=== PATIENT | female | born 1935 | race Caucasian/White ===

== ENCOUNTER 2017-05-26 19:27 | Inpatient (IN) ==
--- NOTE | 2017-05-26 23:07 | Internal Med History&Physical ---
Date of Encounter: 05/27/17 Time of Encounter: 23:02 Assessment and Plan (1) Encephalopathy acute Current visit: Yes Status: Acute Likely hyponatremia. In the setting of slurred speech, should rule out CVA. Has received 1L NS prior to transfer to [facility]. Will continue patient on IV fluids at 75 ml/hr normal saline. Also MRI of head, carotid US. (2) Hyponatremia Current visit: Yes Status: Acute at bedside states that patient has been having poor appetite, likely cause. Start normal saline and titrate accordingly. No previous sodium levels available in records, will replace cautiously. (3) Elevated troponin Current visit: Yes Status: Acute mentioned that she was grabbing her chest prior to syncopal episode and altered behavior. She currently denies chest pain but there was elevation of troponin. Patient possibly with demand ischemia but will start on heparin drip until troponin is cycled to rule out ACS. (4) Hypokalemia Current visit: Yes Status: Acute Replace. (5) Heart murmur on physical examination Current visit: Yes Status: Acute (6) Hypertension Current visit: Yes Status: Acute Restart home medications. Qualifiers: Hypertension type: essential hypertension Qualified Code(s): I10 - Essential (primary) hypertension (7) GERD (gastroesophageal reflux disease) Current visit: Yes Status: Acute PPI Qualifiers: Esophagitis presence: esophagitis presence not specified Qualified Code(s) : K21.9 - Gastro-esophageal reflux disease without esophagitis (8) Hyperlipidemia Current visit: Yes Status: Acute Statin Qualifiers: Hyperlipidemia type: unspecified Qualified Code(s): E78.5 - Hyperlipidemia , unspecified (9) Alzheimer's dementia Current visit: Yes Status: Acute Hold Namenda Qualifiers: Alzheimer's disease onset: unspecified onset Dementia behavioral disturbance: without behavioral disturbance Qualified Code(s): G30.9 - Alzheimer's disease, unspecified; F02.80 - Dementia in other diseases classified elsewhere without behavioral disturbance; F02.80 - Dementia in other diseases classified elsewhere without behavioral disturbance; F02.80 - Dementia in other diseases classified elsewhere without behavioral disturbance Internal Medicine - H&P: HPI Chief complaint: Altered mental status History of present illness: Ms. Gaspar is a 81 year old female with history of Alzheimers dementia, HTN, hypothyroidism, GERD presented from home brought in to [facility] ED for AMS and collapse. Recently started Namenda 2 days ago. Earlier today she had incoherent speech for a few hours and then passed out. She did not have head injury. Witnessed by and son. No prior history of this. No history of stroke or CAD. Under increased stress for past week. Patient was noted by to rub her chest prior to symptoms onset. In [place] patient had sodium of 124, chloride of 88, creatinine within normal limits, lactic acid was within normal limits. Her troponin was 0.04 but then increased to 0.17. An EKG showed sinus tachycardia initially, but it was reported that at one point she briefly went into atrial fibrillation when she was there. A chest x- ray showed no acute process. A CT of head without contrast showed no acute intracranial process. She was give 1L bolus of normal saline followed by additional normal saline running prior to transfer. Past Med Surg Social Fam HX - Family History Mother Age at : 66 Hx Family Cardiac Disorders: Yes (HI) Hx Family Respiratory Disorders: No Hx Family Cancer: No Hx Family GI Disorders: No Hx Family Genitourinary Disorders: No Hx Family Endocrine Disorder: No Hx Family Musculoskeletal Disorders: No Hx Family Neuromuscular Disorders: No Hx Family Neurologic Disorders: No Hx Family HEENT Disorders: No Hx Family Autoimmune Disorders: No Hx Family Reproductive Disorders: No Hx Family Psychosocial Disorders: No Hx Family Medical Disorders: No Father Age at : 82 Hx Family Cardiac Disorders: Yes (CVA) Hx Family Respiratory Disorders: No Hx Family Cancer: No Hx Family GI Disorders: No Hx Family Genitourinary Disorders: No Hx Family Endocrine Disorder: Yes (DM) Hx Family Musculoskeletal Disorders: Yes (Toe amputation) Hx Family Neuromuscular Disorders: No Hx Family Neurologic Disorders: No Hx Family HEENT Disorders: No Hx Family Autoimmune Disorders: No Hx Family Reproductive Disorders: No Hx Family Psychosocial Disorders: No Hx Family Medical Disorders: No Internal Medicine - H&P: Meds 3 Allergy/AdvReac Type Severity Reaction Status Date / Time Sulfa (Sulfonamide Allergy Rash Verified 05/26/17 23:12 Antibiotics) All Systems PM: A 10-system review of systems was performed and is negative for pertinent findings except as documented above in the HPI. - Constitutional Constitutional: falls, weakness, no anorexia, no chills, no fatigue, no fever(s) , no lethargy, no night sweats - EENT Eyes: no change in vision, no discharge, no pain, no photophobia Ears: no ear discharge, no ear pain, no tinnitus Nose, mouth and throat: no dysphagia, no nasal discharge, no neck pain, no sore throat - Cardiovascular Cardiovascular ROS IM: no chest pain, no diaphoresis, no dyspnea, no lightheadedness, no palpitations, no syncope - Respiratory Respiratory: no cough, no dyspnea, no wheezing, no excessive phlegm production - Gastrointestinal Gastrointestinal: no abdominal pain, no diarrhea, no hematemesis, no hematochezia, no melena, no nausea, no vomiting - Genitourinary Genitourinary: no change in urinary stream, no dysuria, no flank pain, no hematuria - Musculoskeletal Musculoskeletal ROS IM: no numbness, no tingling - Neurological Neurological ROS: abnormal speech, behavioral changes, confusion, no abnormal gait, no abnormal movements, no convulsions, no focal weakness, no headache(s), no loss of vision, no numbness - Constitutional Vitals: Temp Pulse Resp BP Pulse Ox 97.8 F 72 16 145/71 95 05/26/17 22:27 05/26/17 22:27 05/26/17 22:27 05/26/17 22:27 05/26/17 22:27 General appearance: Present: A&O X 1, no acute distress - Head Head exam: Present: atraumatic, normocephalic - Cardiovascular Cardiovascular exam: Present: RRR, systolic murmur - Neurological Exam Neurological exam: Present: alert, CN II-XII intact, reflexes normal, no focal deficits, strengths equal and symetr throughout. Absent: facial droop, speech deficit Internal Med - H&P Results - Labs CBC & Chem 7: 05/27/17 00:04 05/27/17 00:04
[2017-05-27 00:12] LABS: Basophils % 0.3 %; Eosinophils % 0.2 %; Hematocrit 36.1 % (35.3-44.9); Hemoglobin 12.9 g/dL (11.5-15.4); Immature Granulocytes % 0.5 % (0-4); Lymphocytes # 0.9 K/mcL (0.6-4.6); Mean Corpuscular HGB Conc 35.7 g/dL (31.6-35.5); Mean Corpuscular Hemoglobin 31.1 pg (28.0-33.3); Mean Platelet Volume 9.5 fL (9.4-12.4); Monocytes # 0.8 K/mcL (0.0-1.3); Platelet Count 230 K/mcL (140-400); Red Blood Count 4.15 M/mcL (3.82-4.97)
[2017-05-27 00:17] LABS: Prothrombin Time 10.4 Seconds (9.4-12.1)
[2017-05-27 00:25] LABS: BUN/Creatinine Ratio 14 (6-26); Blood Urea Nitrogen 9 mg/dL (8-23); Calcium 8.7 mg/dL (8.6-10.3); Carbon Dioxide 19 mEq/L (23-29); Chloride 95 mEq/L (98-107); Glucose 126 mg/dL (70-105); Osmolality,Calculated 254 (280-300); Potassium 3.2 mEq/L (3.5-5.1); Sodium 122 mEq/L (136-145); eGFR For African Americans > 60 (> 60); eGFR For Non-African Americans > 60 (> 60)
[2017-05-27] MEDS ORDERED: Naloxone 0.4 MG/ML INJ IVP PRN (00:28)
[2017-05-27] MEDS ORDERED: Ondansetron 4 MG/2 ML VIAL IVP PRN (00:28)
[2017-05-27] MEDS ORDERED: Acetaminophen 325 MG TABLET PO PRN (00:28)
[2017-05-27] MEDS: 0.9 % Sodium Chloride 1,000 ML IVC SCH ×2 (02:03→17:42)
[2017-05-27 02:04] LABS: Basophils % 0.5 %; Eosinophils % 0.4 %; Hematocrit 33.7 % (35.3-44.9); Immature Granulocytes % 0.4 % (0-4); Immature Platelets 2.8 % (1.1-6.1); Lymphocytes # 0.8 K/mcL (0.6-4.6); Lymphocytes % 10.1 %; Mean Corpuscular HGB Conc 35.6 g/dL (31.6-35.5); Mean Corpuscular Hemoglobin 30.9 pg (28.0-33.3); Mean Corpuscular Volume 86.9 fL (83.0-100.0); Mean Platelet Volume 9.4 fL (9.4-12.4); Monocytes # 0.8 K/mcL (0.0-1.3); Monocytes % 10.1 %; Neutrophils # 6.1 K/mcL (1.6-8.9); Platelet Count 232 K/mcL (140-400); Red Blood Count 3.88 M/mcL (3.82-4.97); Red Cell Distribution Width 12.1 % (11.5-14.5); Segmented Neutrophils % 78.5 %
[2017-05-27] MEDS: Heparin 25,000 UNIT/500 ML D5W 25,000 UNIT/500 ML BAG IVC SCH (02:04)
[2017-05-27 02:25] LABS: BUN/Creatinine Ratio 15 (6-26); Blood Urea Nitrogen 10 mg/dL (8-23); Calcium 8.6 mg/dL (8.6-10.3); Carbon Dioxide 20 mEq/L (23-29); Chloride 96 mEq/L (98-107); Glucose 160 mg/dL (70-105); Osmolality,Calculated 258 (280-300); Potassium 3.1 mEq/L (3.5-5.1); Sodium 123 mEq/L (136-145); eGFR For African Americans > 60 (> 60); eGFR For Non-African Americans > 60 (> 60)
[2017-05-27] MEDS ORDERED: *HR* Heparin 5,000 UNIT/ML VIAL SQ SCH (06:00)
[2017-05-27] MEDS: Levothyroxine 25 MCG TABLET PO SCH (06:33)
--- NOTE | 2017-05-27 16:28 | Internal Med Progress Note ---
Date of Encounter: 05/27/17 Time of Encounter: 12:00 - Assessment and plan (1) Encephalopathy acute Current Visit: Yes Status: Acute Assessment and plan: Patient with baseline dementia. She just started Namenda 2 days prior to event. Patient was at home with was not feeling well, patient was standing in front of a chair and family reports that she "passed out". They also report that she did not hit her head, she fell into the chair on her bottom , and her eyes were open. They report that she was not responsive for several hours afterwards, she has repeat return to baseline today. She was found to be hyponatremic on arrival, could be contributory to confusion. Also could be related to TIA. Patient is alert and awake now, appears to answer questions appropriately. She states that she has no recollection of yesterday, but she does deny chest pain. Bilateral carotids with nonstenotic plaque. PFO present on echo. EF is 60% with indiscriminate diastolic function mild MR, mild TR. Head CT is negative as well as brain MRI. Continue telemetry Continue to monitor labs. Stop Namenda Echocardiogram 05/27/17 00:35 Impressions: LVEF 60%. Indeterminate diastolic function. Normal right ventricular structure and function. Mild mitral regurgitation. Mild tricuspid regurgitation. No pulmonary hypertension. There is a PFO by agitated saline contrast, Brain MRI 05/27/17 00:40 IMPRESSION: Multifocal small-vessel ischemic changes bilaterally without acute infarct D/ / Pawel Bright / Pawel Bright Interpreting Provider: Pawel Bright (2) Hyponatremia Current Visit: Yes Status: Acute Assessment and plan: Sodium is improving, continue IV fluid and monitor labs. (3) Hypokalemia Current Visit: Yes Status: Acute Assessment and plan: By mouth supplementation. (4) Hypertension Current Visit: Yes Status: Chronic Assessment and plan: Blood pressure is well controlled. Continue current medication regimen and vital signs per orders. Qualifiers: Hypertension type: essential hypertension Qualified Code(s): I10 - Essential (primary) hypertension (5) GERD (gastroesophageal reflux disease) Current Visit: Yes Status: Chronic Assessment and plan: Continue home medications. Qualifiers: Esophagitis presence: esophagitis presence not specified Qualified Code(s) : K21.9 - Gastro-esophageal reflux disease without esophagitis (6) Hyperlipidemia Current Visit: Yes Status: Acute Assessment and plan: Continue Zocor. Qualifiers: Hyperlipidemia type: unspecified Qualified Code(s): E78.5 - Hyperlipidemia , unspecified (7) Alzheimer's dementia Current Visit: Yes Status: Acute Assessment and plan: Patient takes Aricept at home, she had just started Namenda 2 days prior to event. Family reports in the past the patient had difficulty with Namenda after 2 weeks. Patient's altered mental status prior to arrival could be reaction to Namenda. It has been stopped and we will not recommend restarting it. Patient is close to the nurse's station. Fall precautions Bed alarm Qualifiers: Alzheimer's disease onset: unspecified onset Dementia behavioral disturbance: without behavioral disturbance Qualified Code(s): G30.9 - Alzheimer's disease, unspecified; F02.80 - Dementia in other diseases classified elsewhere without behavioral disturbance; F02.80 - Dementia in other diseases classified elsewhere without behavioral disturbance; F02.80 - Dementia in other diseases classified elsewhere without behavioral disturbance (8) Elevated troponin Current Visit: Yes Status: Acute Assessment and plan: Patient with elevated troponin 0.27, 0.19, 0.29. Cardiology has been consulted. It is unclear if patient had chest pain. Lactic acid is within normal limits, patient does not have a white count. Echo with preserved EF, indeterminant diastolic function, there is a PFO, mild TR, mild MR. Renal function is within normal limits. Continue telemetry Patient is on a heparin drip, nursing to monitor and titrate. (9) DVT prophylaxis Current Visit: Yes Status: Acute Assessment and plan: Patient is on a heparin drip currently for elevated troponin. - Time Spent With Patient less than 15 minutes - Constitutional Vitals: Temp Pulse Resp BP Pulse Ox 98.4 F 71 17 109/61 96 05/27/17 16:17 05/27/17 16:17 05/27/17 16:17 05/27/17 16:17 05/27/17 16:17 General appearance: Present: A&O X 1, pleasant, no acute distress, answers questions appropriately - Head Head exam: Present: atraumatic, normal inspection, normocephalic - Eye Eye exam: Present: normal appearance, conjuntiva pink, sclera anicteric - Neck Neck exam general surgery: Present: supple, trachea midline. Absent: lymphadenopathy, tenderness - Respiratory Respiratory exam: Present: CTAB. Absent: accessory muscle use, chest wall tenderness, rales, rhonchi, wheezes - Cardiovascular Cardiovascular exam: Present: RRR, +S1, +S2. Absent: diastolic murmur, gallop, rubs, systolic murmur - GI/Abdominal GI/Abdominal exam: Present: normal bowel sounds, soft, no peritoneal signs. Absent: distended, hepatomegaly, tenderness - Extremities Exam Extremities exam: Present: normal capillary refill, warm, radial pulses palpable and symmetrical. Absent: calf tenderness, cyanotic, pedal edema, tenderness - Neurological Exam Neurological exam: Present: CN II-XII intact, oriented X3, no focal deficits. Absent: facial droop, speech deficit - Skin Skin exam: Present: dry, intact, normal color, warm. Absent: rash Internal Medicine: Result - Labs CBC & Chem 7: 05/27/17 01:57 05/27/17 12:53 Labs: Short CBC 05/27/17 05/27/17 Range/Units 00:04 01:57 WBC 8.8 7.8 (4.3-11.1) K/mcL Hgb 12.9 12.0 (11.5-15.4) g/dL Hct 36.1 33.7 L (35.3-44.9) % Plt Count 230 232 (140-400) K/mcL Neutrophils # 7.0 6.1 (1.6-8.9) K/mcL BMP 05/27/17 05/27/17 05/27/17 00:04 01:57 12:53 Sodium 122 L 123 L 125 L Potassium 3.2 L 3.1 L Chloride 95 L 96 L Carbon Dioxide 19 L 20 L BUN 9 10 Creatinine 0.63 0.68 Glucose 126 H 160 H Calcium 8.7 8.6 Cardiac Enzymes 05/27/17 05/27/17 05/27/17 Range/Units 00:04 06:19 12:53 Troponin I 0.27 H* 0.19 H* 0.29 H* (< 0.04) ng/mL - ABG Interpretation ABG results: PT/INR, D-dimer PT 10.4 Seconds (9.4-12.1) 05/27/17 00:04 - Impressions Impressions Echocardiogram 05/27/17 00:35 Impressions: LVEF 60%. Indeterminate diastolic function. Normal right ventricular structure and function. Mild mitral regurgitation. Mild tricuspid regurgitation. No pulmonary hypertension. There is a PFO by agitated saline contrast, Left Ventricular Wall Motion: Rest Echo Findings All wall segments showed normal motion. Findings: Study Quality * Technically adequate exam. ECG Findings * Normal sinus rhythm. Left Ventricle * LVEF 60%. * Normal LV chamber size, wall thickness and function. * Indeterminate diastolic function. Right Ventricle * Normal right ventricular structure and function. Left Atrium * Normal left atrial size. Right Atrium * Normal right atrial size. Aortic Valve * No aortic regurgitation. * No aortic stenosis. * Trileaflet aortic valve. Mitral Valve * Normal mitral valve structure. * No mitral stenosis. * Mild mitral regurgitation. Tricuspid Valve * Tricuspid valve not well visualized. * Mild tricuspid regurgitation. * Estimated RA pressure is 3 mmHg. * Estimated RVSP is 31 mmHg. * No pulmonary hypertension. Pulmonic Valve * Pulmonic valve is not well visualized. * No pulmonic stenosis. * Trace pulmonic regurgitation. Pulmonary Artery * Pulmonary artery not well visualized. Aorta * Normally sized aortic root. Pericardium * There is no pericardial effusion present. Interatrial Septum * There is a PFO by agitated saline contrast, IVC * Normal IVC dimensions and inspiratory collapse. Brain MRI 05/27/17 00:40 IMPRESSION: Multifocal small-vessel ischemic changes bilaterally without acute infarct D/ / Pawel Bright / Pawel Bright Interpreting Provider: Pawel Bright Consult Discharge Plan - Plan Referrals: Lyla Bates, [employer] AND DR[employer] RESEARCH SCIENTIST [Primary Care Provider] -
[2017-05-27 17:38] LABS: Activated Partial Thrombo Time 123.9 Seconds (26.0-36.0)
[2017-05-27 17:47] LABS: Heparin anti-factor XA UFH 0.8 IU/mL (0.30-0.70)
[2017-05-27] MEDS: Niacin (24 HR) 500 MG TAB.ER.24H PO SCH (20:11)
[2017-05-28] MEDS: Levothyroxine 25 MCG TABLET PO SCH (09:37)
[2017-05-28] MEDS: Heparin 25,000 UNIT/500 ML D5W 25,000 UNIT/500 ML BAG IVC SCH (10:06)
--- NOTE | 2017-05-28 10:12 | Internal Med Progress Note ---
Date of Encounter: 05/28/17 Time of Encounter: 07:20 - Assessment and plan (1) Encephalopathy acute Current Visit: Yes Status: Acute Assessment and plan: Patient with baseline dementia. She just started Namenda 2 days prior to event. Patient was at home with was not feeling well, patient was standing in front of a chair and family reports that she "passed out". They also report that she did not hit her head, she fell into the chair on her bottom , and her eyes were open. They report that she was not responsive for several hours afterwards, she has repeat return to baseline today. She was found to be hyponatremic on arrival, could be contributory to confusion , possible seizure. Also could be related to TIA. Repeat labs pending. Patient is alert and awake now, appears to answer questions appropriately. She states that she has no recollection of yesterday, but she does deny chest pain. Bilateral carotids with nonstenotic plaque. PFO present on echo. EF is 60% with indiscriminate diastolic function mild MR, mild TR. Head CT is negative as well as brain MRI. Continue telemetry Continue to monitor labs. Stop Namenda (2) Hyponatremia Current Visit: Yes Status: Acute Assessment and plan: Sodium is improving, continue IV fluid and monitor labs. Repeat labs pending. (3) Hypokalemia Current Visit: Yes Status: Acute Assessment and plan: By mouth supplementation. Repeat labs pending. (4) Hypertension Current Visit: Yes Status: Chronic Assessment and plan: Blood pressure is well controlled. Continue current medication regimen and vital signs per orders. Qualifiers: Hypertension type: essential hypertension Qualified Code(s): I10 - Essential (primary) hypertension (5) GERD (gastroesophageal reflux disease) Current Visit: Yes Status: Chronic Assessment and plan: Continue home medications. Qualifiers: Esophagitis presence: esophagitis presence not specified Qualified Code(s) : K21.9 - Gastro-esophageal reflux disease without esophagitis (6) Hyperlipidemia Current Visit: Yes Status: Acute Assessment and plan: Chronic. Continue Zocor. Qualifiers: Hyperlipidemia type: unspecified Qualified Code(s): E78.5 - Hyperlipidemia , unspecified (7) Alzheimer's dementia Current Visit: Yes Status: Acute Assessment and plan: Patient takes Aricept at home, she had just started Namenda 2 days prior to event. Family reports in the past the patient had difficulty with Namenda after 2 weeks. Patient's altered mental status prior to arrival could be reaction to Namenda. It has been stopped and we will not recommend restarting it. Patient is close to the nurse's station. Fall precautions Bed alarm Qualifiers: Alzheimer's disease onset: unspecified onset Dementia behavioral disturbance: without behavioral disturbance Qualified Code(s): G30.9 - Alzheimer's disease, unspecified; F02.80 - Dementia in other diseases classified elsewhere without behavioral disturbance; F02.80 - Dementia in other diseases classified elsewhere without behavioral disturbance; F02.80 - Dementia in other diseases classified elsewhere without behavioral disturbance (8) Elevated troponin Current Visit: Yes Status: Acute Assessment and plan: Patient with elevated troponin 0.27, 0.19, 0.29. Cardiology has been consulted. It is unclear if patient had chest pain. Lactic acid is within normal limits, patient does not have a white count. Echo with preserved EF, indeterminant diastolic function, there is a PFO, mild TR, mild MR. Renal function is within normal limits. Continue telemetry Patient is on a heparin drip, nursing to monitor and titrate. Cardiology consultation pending. (9) DVT prophylaxis Current Visit: Yes Status: Acute Assessment and plan: Patient is on a heparin drip currently for elevated troponin. - Time Spent With Patient less than 15 minutes - Subjective Interval history: Pt was seen and assessed at 0720. She was alert and awake and states that she feels better. Pt still denies chest pain. at bedside, questions answered. Pt denies headache, n/v/d/, vision changes, abd pain or SOB. - Constitutional Vitals: Temp Pulse Resp BP Pulse Ox 98.3 F 73 16 122/87 93 05/28/17 09:46 05/28/17 09:46 05/28/17 09:46 05/28/17 09:46 05/28/17 09:46 General appearance: Present: cooperative, A&O X 1, pleasant, no acute distress, answers questions appropriately - Head Head exam: Present: atraumatic, normal inspection, normocephalic - Eye Eye exam: Present: normal appearance, conjuntiva pink, sclera anicteric - Neck Neck exam general surgery: Present: supple, trachea midline. Absent: lymphadenopathy - Respiratory Respiratory exam: Present: chest wall tenderness, CTAB. Absent: accessory muscle use, rales, respiratory distress, rhonchi, wheezes - Cardiovascular Cardiovascular exam: Present: RRR, +S1, +S2. Absent: diastolic murmur, gallop, rubs, systolic murmur - GI/Abdominal GI/Abdominal exam: Present: normal bowel sounds, soft, no peritoneal signs. Absent: distended, hepatomegaly, tenderness - Extremities Exam Extremities exam: Present: normal capillary refill, warm, radial pulses palpable and symmetrical. Absent: calf tenderness, cyanotic, pedal edema, tenderness - Neurological Exam Neurological exam: Present: alert, oriented X3, no focal deficits. Absent: facial droop, speech deficit - Skin Skin exam: Present: dry, intact, normal color, warm. Absent: rash Internal Medicine: Result - Labs CBC & Chem 7: 05/27/17 01:57 05/27/17 12:53 Labs: BMP 05/27/17 12:53 Sodium 125 L Cardiac Enzymes 05/27/17 Range/Units 12:53 Troponin I 0.29 H* (< 0.04) ng/mL - ABG Interpretation ABG results: PT/INR, D-dimer PT 10.4 Seconds (9.4-12.1) 05/27/17 00:04 - Impressions Impressions Echocardiogram 05/27/17 00:35 Impressions: LVEF 60%. Indeterminate diastolic function. Normal right ventricular structure and function. Mild mitral regurgitation. Mild tricuspid regurgitation. No pulmonary hypertension. There is a PFO by agitated saline contrast, Left Ventricular Wall Motion: Rest Echo Findings All wall segments showed normal motion. Findings: Study Quality * Technically adequate exam. ECG Findings * Normal sinus rhythm. Left Ventricle * LVEF 60%. * Normal LV chamber size, wall thickness and function. * Indeterminate diastolic function. Right Ventricle * Normal right ventricular structure and function. Left Atrium * Normal left atrial size. Right Atrium * Normal right atrial size. Aortic Valve * No aortic regurgitation. * No aortic stenosis. * Trileaflet aortic valve. Mitral Valve * Normal mitral valve structure. * No mitral stenosis. * Mild mitral regurgitation. Tricuspid Valve * Tricuspid valve not well visualized. * Mild tricuspid regurgitation. * Estimated RA pressure is 3 mmHg. * Estimated RVSP is 31 mmHg. * No pulmonary hypertension. Pulmonic Valve * Pulmonic valve is not well visualized. * No pulmonic stenosis. * Trace pulmonic regurgitation. Pulmonary Artery * Pulmonary artery not well visualized. Aorta * Normally sized aortic root. Pericardium * There is no pericardial effusion present. Interatrial Septum * There is a PFO by agitated saline contrast, IVC * Normal IVC dimensions and inspiratory collapse. Consult Discharge Plan - Plan Referrals: Lyla Bates, [employer] DEVELOPER [Primary Care Provider] -
[2017-05-28 10:33] LABS: Basophils % 0.7 %; Eosinophils % 0.9 %; Hematocrit 31.7 % (35.3-44.9); Hemoglobin 11.1 g/dL (11.5-15.4); Immature Granulocytes % 0.2 % (0-4); Lymphocytes % 22.7 %; Mean Corpuscular Hemoglobin 31.4 pg (28.0-33.3); Mean Corpuscular Volume 89.5 fL (83.0-100.0); Mean Platelet Volume 9.9 fL (9.4-12.4); Monocytes # 0.5 K/mcL (0.0-1.3); Monocytes % 11.1 %; Neutrophils # 2.8 K/mcL (1.6-8.9); Platelet Count 179 K/mcL (140-400); Red Blood Count 3.54 M/mcL (3.82-4.97); Red Cell Distribution Width 12.5 % (11.5-14.5); Segmented Neutrophils % 64.4 %
[2017-05-28 10:36] LABS: BUN/Creatinine Ratio 13 (6-26); Blood Urea Nitrogen 8 mg/dL (8-23); Calcium 8.3 mg/dL (8.6-10.3); Carbon Dioxide 25 mEq/L (23-29); Chloride 100 mEq/L (98-107); Glucose 107 mg/dL (70-105); Osmolality,Calculated 265 (280-300); Potassium 3.6 mEq/L (3.5-5.1); Sodium 128 mEq/L (136-145); eGFR For African Americans > 60 (> 60); eGFR For Non-African Americans > 60 (> 60)
[2017-05-28] MEDS: 0.9 % Sodium Chloride 1,000 ML IVC SCH (16:40)
[2017-05-28 20:44] LABS: Sodium, Urine 58.1 mEq/L
[2017-05-28] MEDS: Niacin (24 HR) 500 MG TAB.ER.24H PO SCH (20:45)
[2017-05-29 03:58] LABS: Basophils % 0.8 %; Eosinophils # 0.1 K/mcL (0.0-0.6); Eosinophils % 2.7 %; Hematocrit 30.9 % (35.3-44.9); Hemoglobin 10.8 g/dL (11.5-15.4); Immature Granulocytes % 0.4 % (0-4); Lymphocytes # 1.2 K/mcL (0.6-4.6); Lymphocytes % 25.6 %; Mean Corpuscular Hemoglobin 31.2 pg (28.0-33.3); Mean Corpuscular Volume 89.3 fL (83.0-100.0); Mean Platelet Volume 10.1 fL (9.4-12.4); Monocytes # 0.6 K/mcL (0.0-1.3); Monocytes % 12.9 %; Neutrophils # 2.7 K/mcL (1.6-8.9); Platelet Count 168 K/mcL (140-400); Red Blood Count 3.46 M/mcL (3.82-4.97); Red Cell Distribution Width 12.9 % (11.5-14.5); Segmented Neutrophils % 57.6 %
[2017-05-29 04:21] LABS: BUN/Creatinine Ratio 13 (6-26); Blood Urea Nitrogen 9 mg/dL (8-23); Calcium 8.4 mg/dL (8.6-10.3); Carbon Dioxide 22 mEq/L (23-29); Chloride 102 mEq/L (98-107); Glucose 101 mg/dL (70-105); Osmolality,Calculated 267 (280-300); Potassium 3.6 mEq/L (3.5-5.1); Sodium 129 mEq/L (136-145); eGFR For African Americans > 60 (> 60); eGFR For Non-African Americans > 60 (> 60)
[2017-05-29] MEDS: 0.9 % Sodium Chloride 1,000 ML IVC SCH (05:25)
[2017-05-29] MEDS: Levothyroxine 25 MCG TABLET PO SCH (05:56)
[2017-05-29] MEDS ORDERED: 0.9 % Sodium Chloride 1,000 ML IVC SCH (07:15)
--- NOTE | 2017-05-29 07:58 | Cardiology Consult Note ---
Addendum entered and electronically signed by Jimmie Coleman CNP 05/29/17 09:40 : Clarification: Patient and deny any CP during or prior to event. reports patient had just stood up to put on coat when she got weak and he lowered her to the ground. Outside records reviewed and now evidence of afib noted-- all ECGs strips shows SR-ST. Will DC IV Hep gtt. Will resume home dose asa. Original Note: Date of Encounter: 05/29/17 Time of Encounter: 08:00 Assessment and Plan (1) Elevated troponin Current Visit: Yes Status: Acute Per Cardiology: Flat, adynamic trops with peak 0.29 in setting of hyponatremia, reports SBP 160's initially, seizure like activity with LOC, and concerns for possible afib per medical records. Echo with LVEF 60%, Indeterminate diastolic function, Mild MR & TR. NSWMA. CP free. Will discuss and review with Dr. Guillory. Patient and evaluating monitoring and observing vs further ishemic eval during stay ( vs. [facility]). Will address CR rehab during course, demand ischemia vs NSTEMI. On ARB and Statin. On Hep gtt. (2) Alzheimer's dementia Current Visit: Yes Status: Chronic Per Cardiology: Has baseline dementia. Brain MRI no acute findings. Currently A&Ox3. Qualifiers: Alzheimer's disease onset: unspecified onset Dementia behavioral disturbance: without behavioral disturbance Qualified Code(s): G30.9 - Alzheimer's disease, unspecified; F02.80 - Dementia in other diseases classified elsewhere without behavioral disturbance; F02.80 - Dementia in other diseases classified elsewhere without behavioral disturbance; F02.80 - Dementia in other diseases classified elsewhere without behavioral disturbance Discussion w patient/family: The assessment and plan as outlined above was discussed with the patient and/or family members who expressed understanding and agreement. All questions were answered. Thank you for involving us in the care of your patient. Please call with any questions. History of Present Illness Consult date: 05/29/17 Requesting physician: Natalia Bailey Consult reason: Elevated Trop Chief complaint: Seizure, Confusion History of present illness: Previous records reviewed: "Ms. Gaspar is a 81 year old female with history of Alzheimers dementia, HTN, hypothyroidism, GERD presented from home brought in to [facility] ED for AMS and collapse. Recently started Namenda 2 days ago. Earlier today she had incoherent speech for a few hours and then passed out. She did not have head injury. Witnessed by and son. No prior history of this. No history of stroke or CAD. Under increased stress for past week. Patient was noted by to rub her chest prior to symptoms onset. In [place] patient had sodium of 124, chloride of 88, creatinine within normal limits, lactic acid was within normal limits. Her troponin was 0.04 but then increased to 0.17. An EKG showed sinus tachycardia initially, but it was reported that at one point she briefly went into atrial fibrillation when she was there. A chest x- ray showed no acute process. A CT of head without contrast showed no acute intracranial process". Cardiology C/s for trop elevation. Patient seen with at bedside. Today she is A&Ox3. They both deny any chest pain, shortness of breath, palpitations. Deny any hx of CAD or afib. reports seizure-like activity prior to admission that he attributes to low sodium. He confirms the above information. Past Med Surg Social Fam HX - Past Medical History Attestation: Yes The following information was validated with the patient. Source: old records reviewed, obtained from family Medical history: GERD, hypertension, thyroid disease, other (alzheimer's dementia) - Social History Smoking Status: Never smoker Smokeless Tobacco Status: No Alcohol use: none Drug use: none - Family History Mother Age at : 66 Hx Family Cardiac Disorders: Yes (NC) Hx Family Respiratory Disorders: No Hx Family Cancer: No Hx Family GI Disorders: No Hx Family Genitourinary Disorders: No Hx Family Endocrine Disorder: No Hx Family Musculoskeletal Disorders: No Hx Family Neuromuscular Disorders: No Hx Family Neurologic Disorders: No Hx Family HEENT Disorders: No Hx Family Autoimmune Disorders: No Hx Family Reproductive Disorders: No Hx Family Psychosocial Disorders: No Hx Family Medical Disorders: No Father Age at : 82 Hx Family Cardiac Disorders: Yes (CVA) Hx Family Respiratory Disorders: No Hx Family Cancer: No Hx Family GI Disorders: No Hx Family Genitourinary Disorders: No Hx Family Endocrine Disorder: Yes (DM) Hx Family Musculoskeletal Disorders: Yes (Toe amputation) Hx Family Neuromuscular Disorders: No Hx Family Neurologic Disorders: No Hx Family HEENT Disorders: No Hx Family Autoimmune Disorders: No Hx Family Reproductive Disorders: No Hx Family Psychosocial Disorders: No Hx Family Medical Disorders: No Medications and Allergies Cyanocobalamin (B-12) [Vitamin B12] 1,000 mcg IM QMONTH 05/27/17 [History] DiphenhydraMINE [Benadryl] 25 mg PO HS 05/27/17 [History] Donepezil [Aricept] 10 mg PO HS 05/27/17 [History] Levothyroxine [Synthroid] 25 mcg PO DAILY 05/27/17 [History] Losartan/Hydrochlorothiazide [Losartan-Hctz 100-25 mg Tab] 1 tab PO DAILY [History] Memantine [Namenda] 5 mg PO QAM 05/27/17 [History] Naproxen [Naprosyn] 500 mg PO BID 05/27/17 [History] Niacin [Plain Niacin] 500 mg PO DAILY 05/27/17 [History] Omeprazole [PriLOSEC] 20 mg PO DAILY 05/27/17 [History] Simvastatin [Zocor] 20 mg PO HS 05/27/17 [History] Tramadol HCl [Ultram] 50 mg PO QID PRN 05/27/17 [History] 3 Allergy/AdvReac Type Severity Reaction Status Date / Time Sulfa (Sulfonamide Allergy Rash Verified 05/26/17 23:12 Antibiotics) All Systems Review: A 10-system review of systems was performed and is negative for pertinent findings except as documented above in the HPI. - Cardiovascular Cardiovascular: as per HPI, chest pain at rest - Neurological Neurological: other (seizure) Physical Examination Vital Signs, Last 4 Hours Temp Pulse Resp BP Pulse Ox 05/29/17 07:03 98.4 F 71 14 123/76 97 General: Conversant, No Apparent Distress HEENT: Atraumatic, Normocephaly, Mucus Membranes Moist Neck: No JVD, Normal carotid pulses Cardiac: Reg Rate and Rhythm, Normal S1 and S2, No Murmur Lungs: Normal Breath Sounds, No Wheeze, Rales, Rhonchi Neuro: Alert and responsive, No focal deficits noted Abdomen: Soft, Non-Tender Skin: No rashes noted on visualized skin Musculoskeletal: No Chest Wall Tenderness Extremities: No Clubbing, No Cyanosis, No Edema, Normal Pulses Results 05/29/17 02:45 05/29/17 02:45 Lab Results Laboratory Tests 05/27/17 05/27/17 05/27/17 00:04 00:04 00:04 Hgb 12.9 Hct 36.1 INR 1.0 Troponin I 0.27 H* 05/27/17 05/27/17 05/28/17 06:19 12:53 10:10 Hgb Hct INR Troponin I 0.19 H* 0.29 H* 0.18 H* 05/29/17 02:45 Hgb 10.8 L Hct 30.9 L INR Troponin I ITS Impressions Echocardiogram 05/27/17 00:35 Impressions: LVEF 60%. Indeterminate diastolic function. Normal right ventricular structure and function. Mild mitral regurgitation. Mild tricuspid regurgitation. No pulmonary hypertension. There is a PFO by agitated saline contrast, Left Ventricular Wall Motion: Rest Echo Findings All wall segments showed normal motion. Findings: Study Quality * Technically adequate exam. ECG Findings * Normal sinus rhythm. Left Ventricle * LVEF 60%. * Normal LV chamber size, wall thickness and function. * Indeterminate diastolic function. Right Ventricle * Normal right ventricular structure and function. Left Atrium * Normal left atrial size. Right Atrium * Normal right atrial size. Aortic Valve * No aortic regurgitation. * No aortic stenosis. * Trileaflet aortic valve. Mitral Valve * Normal mitral valve structure. * No mitral stenosis. * Mild mitral regurgitation. Tricuspid Valve * Tricuspid valve not well visualized. * Mild tricuspid regurgitation. * Estimated RA pressure is 3 mmHg. * Estimated RVSP is 31 mmHg. * No pulmonary hypertension. Pulmonic Valve * Pulmonic valve is not well visualized. * No pulmonic stenosis. * Trace pulmonic regurgitation. Pulmonary Artery * Pulmonary artery not well visualized. Aorta * Normally sized aortic root. Pericardium * There is no pericardial effusion present. Interatrial Septum * There is a PFO by agitated saline contrast, IVC * Normal IVC dimensions and inspiratory collapse. Brain MRI 05/27/17 00:40 IMPRESSION: Multifocal small-vessel ischemic changes bilaterally without acute infarct D/ / Pawel Bright / Pawel Bright Interpreting Provider: Pawel Bright Active Medications Acetaminophen (Tylenol) 650 mg PO Q6HR PRN PRN Reason: Mild Pain (1-3) Stop: 11/26/17 00:29 Diphenhydramine HCl (Benadryl) 50 mg PO HS [facility] Stop: 11/27/17 21:01 Last Admin: 05/28/17 20:45 Dose: 50 mg Docusate Sodium (Colace) 100 mg PO BID PRN PRN Reason: Constipation Stop: 11/26/17 00:29 Donepezil HCl (Aricept) 10 mg PO HS [facility] Stop: 11/26/17 21:01 Last Admin: 05/28/17 20:45 Dose: 10 mg Heparin Sodium/Dextrose (Heparin 25,000 Unit/500 Ml D5w) 25,000 unit in 500 mls @ 19.33 mls/hr IVC .Q24H [facility]; 14 UNIT/KG/HR PRN Reason: Protocol Stop: 11/26/17 00:46 Last Titration: 05/28/17 10:07 Dose: 10.35 unit/kg/hr, 14.3 mls/hr Sodium Chloride (0.9 % Sodium Chloride) 1,000 mls @ 90 mls/hr IVC .Q11H7M [facility] Stop: 11/28/17 07:16 Levothyroxine Sodium (Synthroid) 25 mcg PO DAILY@0630 [facility] Stop: 11/26/17 06:31 Last Admin: 05/29/17 05:56 Dose: 25 mcg Losartan Potassium (Cozaar) 25 mg PO DAILY [facility] PRN Reason: Protocol Stop: 11/26/17 09:01 Last Admin: 05/28/17 09:47 Dose: 25 mg Naloxone HCl (Narcan) 0.4 mg IVP Q2MIN PRN PRN Reason: Opioid Reversal Stop: 11/26/17 00:29 Naproxen (Naprosyn) 500 mg PO BIDWM PRN; Protocol PRN Reason: Pain Stop: 11/26/17 01:04 Niacin (Niaspan) [address] [facility] Stop: 11/26/17 21:01 Last Admin: 05/28/17 20:45 Dose: 500 mg Omeprazole (Prilosec) 20 mg PO DAILY@0630 [facility] PRN Reason: Protocol Stop: 11/26/17 06:31 Last Admin: 05/29/17 05:56 Dose: 20 mg Ondansetron HCl (Zofran) 4 mg IVP Q8HR PRN PRN Reason: Nausea And Vomiting Stop: 06/24/18 00:29 Potassium Chloride (Potassium Chloride) 40 meq PO DAILY [facility] Stop: 11/26/17 12:46 Last Admin: 05/28/17 09:48 Dose: 40 meq Simvastatin (Zocor) 20 mg PO HS [facility] PRN Reason: Protocol Stop: 11/26/17 21:01 Last Admin: 05/28/17 20:45 Dose: 20 mg - Imaging and Cardiology Echo: report reviewed - EKG Interpretation EKG results cardiology: personally reviewed, normal ECG, sinus rhythm, no diagnostic ischemia, other (Tele reviewed and shows avg HR 69, SR, no afib noted ) Consult Discharge Plan - Plan Referrals: Lyla Bates, DIST[employer]BUTION SALES REPRESENTATIVE [Primary Care Provider] -
[2017-05-29] MEDS: Heparin 25,000 UNIT/500 ML D5W 25,000 UNIT/500 ML BAG IVC SCH (08:21)
[2017-05-29] MEDS: Aspirin 81 MG TAB.CHEW PO SCH (10:53)
--- NOTE | 2017-05-29 11:17 | Discharge Summary ---
Date of Encounter: 05/29/17 Time of Encounter: 07:50 - Discharge Diagnosis (1) Encephalopathy acute Priority: Primary Status: Acute Comments: Patient with baseline dementia. She just started Namenda 2 days prior to event. Patient was at home with was not feeling well, patient was standing in front of a chair and family reports that she "passed out". They also report that she did not hit her head, she fell into the chair on her bottom , and her eyes were open. They report that she was not responsive for several hours afterwards, she has repeat return to baseline today. She was found to be hyponatremic on arrival, could be contributory to confusion , possible seizure. Patient is alert and awake now, appears to answer questions appropriately. Bilateral carotids with nonstenotic plaque. PFO present on echo. EF is 60% with indiscriminate diastolic function mild MR, mild TR. Head CT is negative as well as brain MRI. Continue telemetry Continue to monitor labs. Stop Namenda (2) Hyponatremia Priority: Secondary Status: Acute Comments: Unknown cause at this time. Height chlorothiazide has been stopped, patient is not on any SSRIs. She and both deny excessive free water intake at home. Sodium is improving with IV hydration. We will redraw labs again today and monitor sodium. (3) Hypokalemia Priority: Secondary Status: Resolved Comments: Resolved with by mouth supplementation. (4) Hypertension Priority: Secondary Status: Chronic Comments: Blood pressure is within normal limits. Hydrochlorothiazide has been stopped due to hyponatremia. Blood pressure is still within normal limits Continue to monitor. Qualifiers: Hypertension type: essential hypertension Qualified Code(s): I10 - Essential (primary) hypertension (5) GERD (gastroesophageal reflux disease) Priority: Secondary Status: Chronic Comments: Chronic. Continue home medications. Qualifiers: Esophagitis presence: esophagitis presence not specified Qualified Code(s) : K21.9 - Gastro-esophageal reflux disease without esophagitis (6) Hyperlipidemia Priority: Secondary Status: Chronic Comments: Chronic. Continue simvastatin. Qualifiers: Hyperlipidemia type: unspecified Qualified Code(s): E78.5 - Hyperlipidemia , unspecified (7) Alzheimer's dementia Priority: Secondary Status: Chronic Comments: Patient takes Aricept at home, she had just started Namenda 2 days prior to event. Family reports in the past the patient had difficulty with Namenda after 2 weeks. Patient's altered mental status prior to arrival could be reaction to Namenda. It has been stopped and we will not recommend restarting it. Patient is close to the nurse's station. Fall precautions Bed alarm Qualifiers: Alzheimer's disease onset: unspecified onset Dementia behavioral disturbance: without behavioral disturbance Qualified Code(s): G30.9 - Alzheimer's disease, unspecified; F02.80 - Dementia in other diseases classified elsewhere without behavioral disturbance; F02.80 - Dementia in other diseases classified elsewhere without behavioral disturbance; F02.80 - Dementia in other diseases classified elsewhere without behavioral disturbance (8) Elevated troponin Priority: Secondary Status: Acute Comments: NSTEMI. Patient with elevated troponin 0.27, 0.19, 0.29. Cardiology has been consulted. It is unclear if patient had chest pain. Lactic acid is within normal limits, patient does not have a white count. Echo with preserved EF, indeterminant diastolic function, there is a PFO, mild TR, mild MR. Renal function is within normal limits. Continue telemetry Heparin drip has been discontinued. Cardiology consulted, recommend stress test tomorrow. Patient will be nothing by mouth after midnight. I appreciate the consultation and recommendations of cardiology. (9) DVT prophylaxis Priority: Secondary Status: Acute - Discharge Medications Home Medications: Cyanocobalamin (B-12) [Vitamin B12] 1,000 mcg IM QMONTH 05/27/17 [History] DiphenhydraMINE [Benadryl] 25 mg PO HS 05/27/17 [History] Donepezil [Aricept] 10 mg PO HS 05/27/17 [History] Levothyroxine [Synthroid] 25 mcg PO DAILY 05/27/17 [History] Losartan/Hydrochlorothiazide [Losartan-Hctz 100-25 mg Tab] 1 tab PO DAILY [History] Naproxen [Naprosyn] 500 mg PO BID 05/27/17 [History] Niacin [Plain Niacin] 500 mg PO DAILY 05/27/17 [History] Omeprazole [PriLOSEC] 20 mg PO DAILY 05/27/17 [History] Simvastatin [Zocor] 20 mg PO HS 05/27/17 [History] Tramadol HCl [Ultram] 50 mg PO QID PRN 05/27/17 [History] Allergies/Adverse Reactions: 3 Allergy/AdvReac Type Severity Reaction Status Date / Time Sulfa (Sulfonamide Allergy Rash Verified 05/26/17 23:12 Antibiotics) Procedures/tests Complete & Pending: Procedures Performed prior 72 hours Category Date Time Status MR head/brain wo con [MR] Routine MRI 05/27/17 00:40 Completed EKG [ECG 12 lead ECG] [ECG] Stat Y 05/26/17 23:42 Ordered EKG [ECG 12 lead ECG] [ECG] Stat Y 05/28/17 10:25 Ordered EV carotid duplex imaging BI Routine Y 05/27/17 00:40 Completed EV echocardiogram Routine Y 05/27/17 00:35 Completed Date of admission: 05/27/17 00:29 Primary care physician: Lyla Bates CNP Consults: 05/27/17 00:35 Consult to Occupational Therapy [CONS] Routine Comment: Evaluate, develop and implement POC Reason for Consult: Evaluate, develop and implement POC Consult to Physical Therapy [CONS] Routine Comment: Evaluate, develop and implement POC Reason for Consult: Disposition planning. Therapy - weakness in bed. 05/27/17 13:56 Consult to Cardiology [CONS] Routine Comment: Consulting Provider: Cardiology Lilia Reason for Consult: Elevated troponin, unsure if chest pain pt has Alzheimer' s. Time Notified: 13:57 Call Completed: Yes Discharging clinician: Natalia Bailey Anticipated date of discharge: 05/29/17 - Patient Status Disposition: Home, Self-Care Condition: Good Functional capacity at discharge: uses cane/walker Overall status at discharge: patient is back to baseline - Discharge Instructions Follow Up With: Lyla Bates CNP [Primary Care Provider] - Additional Instructions: Please follow up with her primary care provider for continued evaluation and repeat labs. Please try to see her within the next week. Resume her normal home medications, recommend holding Namenda at this time until patient is evaluated by primary care. Resume normal activities as tolerated. Resume normal diet as tolerated. Return to the emergency department as needed for any other problems or concerns , or should symptoms return or worsen. - Diet and Activity Activity: increase activity as tolerated, resume usual activities as tolerated Diet: advance to your usual diet Hospital course: Ms. Gaspar is a 81 year old female with PMH of dementia, hypertension, GERD, hyperlipidemia presents to the emergency department with hyponatremia, questionable seizure/encephalopathy. Patient started taking Namenda 2 days prior to event. Patient reports increased confusion and agitation with Namenda previously. Currently have recommended the patient stop taking Namenda and follow up with primary care, or whomever prescribed it. Hyponatremia has corrected with IV fluid. She is going to go back home with her family. She will need to follow up with primary care in the next few days for recheck and repeat labs. Patient with baseline dementia, answers questions appropriately however. She is pleasant. Vital signs and labs are stable and within normal limits. Imaging was negative. Cardiology has seen patient. She has elevated troponin, NSTEMI. Possible stress test in the morning. - Time Spent with Patient Total time spent providing and/or coordinating discharge services: Less than 30 minutes - Constitutional Vitals: Temp Pulse Resp BP Pulse Ox 99.3 F 73 15 120/73 93 05/29/17 10:35 05/29/17 10:35 05/29/17 10:35 05/29/17 10:35 05/29/17 10:35 General appearance: Present: cooperative, A&O X 3, pleasant, no acute distress, answers questions appropriately - Head Head exam: Present: atraumatic, normal inspection, normocephalic - Eye Eye exam: Present: normal appearance, conjuntiva pink, sclera anicteric - Neck Neck exam general surgery: Present: normal inspection, supple, trachea midline - Respiratory Respiratory exam: Present: CTAB. Absent: accessory muscle use, chest wall tenderness, decreased breath sounds, rales, rhonchi, wheezes - Cardiovascular Cardiovascular exam: Present: RRR, +S1, +S2. Absent: diastolic murmur, gallop, rubs, systolic murmur - GI/Abdominal GI/Abdominal exam: Present: normal bowel sounds, soft, no peritoneal signs. Absent: distended, hepatomegaly, tenderness - Extremities Exam Extremities exam: Present: warm, radial pulses palpable and symmetrical. Absent : calf tenderness, cyanotic, pedal edema - Neurological Exam Neurological exam: Present: alert, oriented X3, no focal deficits. Absent: facial droop, speech deficit - Skin Skin exam: Present: dry, intact, normal color, warm. Absent: rash
[2017-05-29] MEDS: Niacin (24 HR) 500 MG TAB.ER.24H PO SCH (21:54)
[2017-05-30 04:57] LABS: Basophils % 0.7 %; Eosinophils # 0.2 K/mcL (0.0-0.6); Hematocrit 33.1 % (35.3-44.9); Hemoglobin 11.3 g/dL (11.5-15.4); Immature Granulocytes % 0.5 % (0-4); Lymphocytes # 1.5 K/mcL (0.6-4.6); Lymphocytes % 25.6 %; Mean Corpuscular HGB Conc 34.1 g/dL (31.6-35.5); Mean Corpuscular Hemoglobin 30.7 pg (28.0-33.3); Mean Corpuscular Volume 89.9 fL (83.0-100.0); Mean Platelet Volume 10.1 fL (9.4-12.4); Monocytes # 0.7 K/mcL (0.0-1.3); Neutrophils # 3.3 K/mcL (1.6-8.9); Platelet Count 179 K/mcL (140-400); Red Blood Count 3.68 M/mcL (3.82-4.97); Red Cell Distribution Width 13.1 % (11.5-14.5); Segmented Neutrophils % 57.2 %
[2017-05-30 05:15] LABS: BUN/Creatinine Ratio 15 (6-26); Blood Urea Nitrogen 11 mg/dL (8-23); Calcium 8.8 mg/dL (8.6-10.3); Carbon Dioxide 24 mEq/L (23-29); Chloride 104 mEq/L (98-107); Glucose 92 mg/dL (70-105); Osmolality,Calculated 273 (280-300); Potassium 4.3 mEq/L (3.5-5.1); Sodium 132 mEq/L (136-145); eGFR For African Americans > 60 (> 60); eGFR For Non-African Americans > 60 (> 60)
[2017-05-30] MEDS: Levothyroxine 25 MCG TABLET PO SCH (06:05)
[2017-05-30] MEDS: Aspirin 81 MG TAB.CHEW PO SCH (07:26)
[2017-05-30 08:31] LABS: Magnesium 1.8 mg/dL (1.6-2.6)
--- NOTE | 2017-05-30 09:14 | Cardiology Progress Note ---
Date of Encounter: 05/30/17 Time of Encounter: 08:45 Assessment and Plan (1) Elevated troponin Current Visit: Yes Status: Acute Per Cardiology: Flat, adynamic trops with peak 0.29 in setting of hyponatremia, reports SBP 160's initially, seizure like activity with LOC, and concerns for possible afib per medical records-- again previous medical records reviewed with no A. fib appreciated and no A. fib appreciated during this hospital stay. Echo with LVEF 60%, Indeterminate diastolic function, Mild MR & TR. NSWMA. CP free. Patient and daughter are agreeable to nonexercise nuclear stress test. On ARB and Statin. (2) Alzheimer's dementia Current Visit: Yes Status: Chronic Per Cardiology: Has baseline dementia. Brain MRI no acute findings. Currently A&Ox3. Qualifiers: Alzheimer's disease onset: unspecified onset Dementia behavioral disturbance: without behavioral disturbance Qualified Code(s): G30.9 - Alzheimer's disease, unspecified; F02.80 - Dementia in other diseases classified elsewhere without behavioral disturbance; F02.80 - Dementia in other diseases classified elsewhere without behavioral disturbance; F02.80 - Dementia in other diseases classified elsewhere without behavioral disturbance Discussion w patient/family: The assessment and plan as outlined above was discussed with the patient and/or family members who expressed understanding and agreement. All questions were answered. Thank you for involving us in the care of your patient. Please call with any questions. Subjective Principal diagnosis: Elevated Trop Interval history: Patient seen with daughter at bedside. She denies any chest pain, short of breath, palpitations. Denies any new concerns or complaints. Objective Vital Signs, Last 4 Hours Temp Pulse Resp BP Pulse Ox 05/30/17 06:35 98.3 F 72 17 130/76 97 General: Conversant, No Apparent Distress HEENT: Atraumatic, Normocephaly, Mucus Membranes Moist Neck: No JVD, Normal carotid pulses Cardiac: Reg Rate and Rhythm, Normal S1 and S2, No Murmur Lungs: Normal Breath Sounds, No Wheeze, Rales, Rhonchi Neuro: Alert and responsive, No focal deficits noted Abdomen: Soft, Non-Tender Skin: No rashes noted on visualized skin Musculoskeletal: No Chest Wall Tenderness Extremities: No Clubbing, No Cyanosis, No Edema, Normal Pulses Results 05/30/17 04:05 05/30/17 04:05 Lab Results Active Medications Acetaminophen (Tylenol) 650 mg PO Q6HR PRN PRN Reason: Mild Pain (1-3) Stop: 11/26/17 00:29 Aspirin (Aspirin) 81 mg PO DAILY [facility] Stop: 11/28/17 09:46 Last Admin: 05/30/17 07:26 Dose: 81 mg Diphenhydramine HCl (Benadryl) 50 mg PO HS KARUNA Stop: 11/27/17 21:01 Last Admin: 05/29/17 21:54 Dose: 50 mg Docusate Sodium (Colace) 100 mg PO BID PRN PRN Reason: Constipation Stop: 11/26/17 00:29 Donepezil HCl (Aricept) 10 mg PO HS [facility] Stop: 11/26/17 21:01 Last Admin: 05/29/17 21:55 Dose: 10 mg Levothyroxine Sodium (Synthroid) 25 mcg PO DAILY@0630 [facility] Stop: 11/26/17 06:31 Last Admin: 05/30/17 06:05 Dose: 25 mcg Losartan Potassium (Cozaar) 25 mg PO DAILY KARUNA PRN Reason: Protocol Stop: 11/26/17 09:01 Last Admin: 05/30/17 07:26 Dose: 25 mg Naloxone HCl (Narcan) 0.4 mg IVP Q2MIN PRN PRN Reason: Opioid Reversal Stop: 11/26/17 00:29 Naproxen (Naprosyn) 500 mg PO BIDWM PRN; Protocol PRN Reason: Pain Stop: 11/26/17 01:04 Niacin (Niaspan) 500 mg PO HS [facility] Stop: 11/26/17 21:01 Last Admin: 05/29/17 21:54 Dose: 500 mg Omeprazole (Prilosec) 20 mg PO DAILY@0630 [facility] PRN Reason: Protocol Stop: 11/26/17 06:31 Last Admin: 05/30/17 06:05 Dose: 20 mg Ondansetron HCl (Zofran) 4 mg IVP Q8HR PRN PRN Reason: Nausea And Vomiting Stop: 11/26/17 00:29 Potassium Chloride (Potassium Chloride) 40 meq PO DAILY [facility] Stop: 11/26/17 12:46 Last Admin: 05/30/17 07:26 Dose: 40 meq Simvastatin (Zocor) 20 mg PO HS [facility] PRN Reason: Protocol Stop: 11/26/17 21:01 Last Admin: 05/29/17 21:55 Dose: 20 mg - Imaging and Cardiology Stress Test: pending Echo: report reviewed - EKG Interpretation EKG results cardiology: other (Telemetry reviewed with average heart rate 70 the past 12 hours, sinus rhythm, no A. fib noted) Consult Discharge Plan - Plan Additional Instructions: Please follow up with her primary care provider for continued evaluation and repeat labs. Please try to see her within the next week. Resume her normal home medications, recommend holding Namenda at this time until patient is evaluated by primary care. Resume normal activities as tolerated. Resume normal diet as tolerated. Return to the emergency department as needed for any other problems or concerns , or should symptoms return or worsen. Referrals: Lyla Bates, CISO [Primary Care Provider] -
--- NOTE | 2017-05-30 09:14 | Internal Med Progress Note ---
Date of Encounter: 05/30/17 Time of Encounter: 09:12 - Assessment and plan (1) Encephalopathy acute Current Visit: Yes Status: Acute Assessment and plan: has known baseline dementia. Presented with episode of passing out with unresponsive episode for several hours afterwards on day of presentation. Started Namenda 2 days prior to episode. Bilateral carotids with nonstenotic plaque. TTE EF 60%, and dystonia diastolic dysfunction, mild MR and mild TR. PFO present on echo. Brain MRI with chronic small vessel ischemic changes, otherwise nonacute. She was found to be hyponatremic on arrival. Acute change in mentation possibly secondary to hyponatremia and/or Namenda. Mentation returned to baseline with correction of hyponatremia and stopping Namenda. No further workup at this time. (2) Elevated troponin Current Visit: Yes Status: Acute Assessment and plan: serial troponin 0.27, 0.19, 0.29. EKG without acute ST changes. Asymptomatic, denied chest pain. Stress test pending. Cardiology following. Cont ASA (3) GERD (gastroesophageal reflux disease) Current Visit: Yes Status: Chronic Assessment and plan: per hx. Sx's stable with home PPI Qualifiers: Esophagitis presence: without esophagitis Qualified Code(s): K21.9 - Gastro -esophageal reflux disease without esophagitis (4) Hypertension Current Visit: Yes Status: Chronic Assessment and plan: per hx. BP controlled. Continue home BP medications. Qualifiers: Hypertension type: essential hypertension Qualified Code(s): I10 - Essential (primary) hypertension (5) Hyponatremia Current Visit: Yes Status: Acute Assessment and plan: Na 122 on arrival. Home HCTZ stopped. Na improved with IV fluids. Recommend stopping HCTZ, follow-up with PCP within one week. Na132 at discharge. (6) DVT prophylaxis Current Visit: Yes Status: Acute Assessment and plan: Heparin - Time Spent With Patient less than 15 minutes - Subjective Interval history: Seen and examined at bedside; patient is new to me. Information obtained mostly from chart review and daughter at bedside as patient has dementia and is a poor historian. She is able to answer simple yes/no questions however unable to provide details. Patient denies chest pain, no shortness of breath on my exam. Daughter says family would like to proceed with stress test. Discussed with cardiology and they are aware. No acute needs at this time. - Constitutional Vitals: Temp Pulse Resp BP Pulse Ox 98.3 F 72 17 130/76 97 05/30/17 06:35 05/30/17 06:35 05/30/17 06:35 05/30/17 06:35 05/30/17 06:35 General appearance: Present: cooperative, A&O X 1, pleasant, no acute distress, answers questions appropriately - Head Head exam: Present: atraumatic, normocephalic - Eye Eye exam: Present: PERRL, conjuntiva pink, sclera anicteric Pupils: Present: PERRL - Neck Neck exam general surgery: Present: supple, trachea midline. Absent: lymphadenopathy - Respiratory Respiratory exam: Present: CTAB. Absent: accessory muscle use, rales, rhonchi, wheezes - Cardiovascular Cardiovascular exam: Present: RRR, +S1, +S2. Absent: diastolic murmur, gallop, rubs, systolic murmur - GI/Abdominal GI/Abdominal exam: Present: normal bowel sounds, soft, no peritoneal signs. Absent: distended, tenderness - Extremities Exam Extremities exam: Present: warm, radial pulses palpable and symmetrical. Absent : calf tenderness, cyanotic, pedal edema - Neurological Exam Neurological exam: Present: CN II-XII intact, oriented X3, no focal deficits. Absent: pronater drift, facial droop, speech deficit - Skin Skin exam: Present: dry, intact Internal Medicine: Result - Labs CBC & Chem 7: 05/30/17 04:05 05/30/17 04:05 Labs: Short CBC 05/30/17 Range/Units 04:05 WBC 5.8 (4.3-11.1) K/mcL Hgb 11.3 L (11.5-15.4) g/dL Hct 33.1 L (35.3-44.9) % Plt Count 179 (140-400) K/mcL Neutrophils # 3.3 (1.6-8.9) K/mcL BMP 05/29/17 05/30/17 12:59 04:05 Sodium 132 L 132 L Potassium 4.3 Chloride 104 Carbon Dioxide 24 BUN 11 Creatinine 0.71 Glucose 92 Calcium 8.8 - ABG Interpretation ABG results: PT/INR, D-dimer PT 10.4 Seconds (9.4-12.1) 05/27/17 00:04 Consult Discharge Plan - Plan Additional Instructions: Please follow up with her primary care provider for continued evaluation and repeat labs. Please try to see her within the next week. Resume her normal home medications, recommend holding Namenda at this time until patient is evaluated by primary care. Resume normal activities as tolerated. Resume normal diet as tolerated. Return to the emergency department as needed for any other problems or concerns , or should symptoms return or worsen. Referrals: Lyla Bates, BILL [Primary Care Provider] -
[2017-05-30] MEDS ORDERED: Regadenoson 0.4 MG/5 ML SYRINGE IVP ONE (10:45)
[2017-05-30] MEDS: *HR* Heparin 5,000 UNIT/ML VIAL SQ SCH ×2 (12:28→21:01)
--- NOTE | 2017-05-30 14:23 | Event Note ---
Date of Encounter: 05/30/17 Time of Encounter: 14:20 - Cardiology Event Note Stress test results noted and showed small, mild size intensity stress perfusion mid distal anterolateral defect. I had lengthy discussion with patient , , and daughter and at this point they desire to proceed with catheterization for further evaluation. All questions answered. Further recommendations after catheterization.
--- NOTE | 2017-05-30 14:57 | Pre-Sedation Evaluation ---
Pre-sedation evaluation - Pre-sedation checklist Date of procedure: 05/30/17 Procedure: [facility] Recent Vitals: Last Vital Signs Temp 98.3 F 05/30/17 14:43 Pulse 70 05/30/17 14:43 Resp 17 05/30/17 14:43 BP 135/84 05/30/17 14:43 Pulse Ox 97 05/30/17 14:43 Previous reaction to sedatives/anesthetics: Yes; explain in comment Dietary Status: NPO after Midnight Airway Assessment: Patient can open mouth completely, TMJ function normal ASA Classification *see protocol: CLASS II-Mild systemic disease Plan of Care: Pt appropriate candidate for procedure/moderate/conscious sedation , Risks/benefits of procedure/sedation discussed w/ patient/family
--- NOTE | 2017-05-30 15:48 | Electrocardiograph Report ---
[address] [address] Test Date: 2017-05-27 Pat Name: Shirley Gaspar Department: 113 Room: 3B11 Gender: F Store Clerk Checker: : 1935 Requested By: Natalia Bailey Order Number: [id number] Reading MD: Vitaliy Guillory MD Measurements Intervals [place] Rate: 76 P: 44 [place]: 202 QRS: -13 QRSD: 97 T: -1 QT: 313 QTc: 344 Interpretive Statements SINUS RHYTHM Electronically Signed On 05-30-2017 15:47:15 EST by Vitaliy Guillory MD
[2017-05-30] MEDS ORDERED: *HR* Heparin 10,000 UNIT/10 ML VIAL ONE (15:50)
[2017-05-30] MEDS ORDERED: 0.9 % Sodium Chloride 1,000 ML ONE ×2 (15:51→17:02)
[2017-05-30] MEDS ORDERED: Nitroglycerin 1,000 MCG/10 ML VIAL IV ONE (15:51)
[2017-05-30] MEDS ORDERED: Heparin 1,000 UNITS/500 mL 500 ML ONE (15:51)
[2017-05-30] MEDS ORDERED: *HR* FentaNYL (PF) 100 MCG/2 ML VIAL ONE (17:02)
[2017-05-30] MEDS ORDERED: *HR* Midazolam HCl 2 MG/2 ML VIAL ONE (17:02)
--- NOTE | 2017-05-30 17:43 | Invasive Diagnostic Lab Proc ---
Name: Shirley Gaspar Date of Study: 05/30/2017 Date: 1935 Ht: 61.0in Medical Record#: [id number] Age: 81 Wt: 157.41lb Gender: Female BSA: 1.71 Order #: [id number] BMI: 29.76 Physicians Procedure Physician: Vitaliy Guillory MD, [facility] Referring MD: Referring MD: Staff Name Position Time In Renan Haley RT (R) Scrub 04:57 PM Mónica Yancey RT (R) Monitor 04:57 PM Camelia Beal RN Production Boring Machine Operator 04:57 PM Indications Indication Non-Stemi Procedures Performed Procedure L HRT ARTERY/VENTRICLE ANGIO Pre-Procedure Checklist Informed consent is complete signed and on chart. H&P is on chart. ID band is on and ID verified with patient. Patient NPO for procedure The procedure was described for the patient and questions were answered. Blood Pressure: 168/74 ECG is on chart. Rhythm: NSR Plan of Care Patient will tolerate the procedure without complications. Adequate level of comfort will be maintained. Hemodynamics will remain stable Patient will recover from procedure without complications. Respiratory function will be maintained. Cardiac rhythm will remain stable. Patient temperature will be maintained. Patient and/or family have verbalized understanding of the procedure. Patient Education Chief Complaint/Reason for Test: Cardiac Cath Developmental Category: Geriatric (65+ years) Developmentally Appropriate for Age: Yes Learning Barriers: None Education Needs: Procedure Education Method: Verbal Information Taught: Cardiac Cath Educational Evaluation: Able to repeat information Intravenous Access Time IV Size Location DC'd Fluid/Drip Rate Units RN 04:59 PM 20g 1 /" Patent On Arrival Rt Arm 0.9NaCl 25 ml/hr Allergies Sulfa (Sulfonamide Antibiotics) Vital Signs Time BP (mmHg) HR (bpm) O2 Sat. RR (bpm) LOC 05:08 PM / % 5 = Fully awake and oriented or at pre-proc level 05:11 PM 171 / 99 81 100 % 19 05:16 PM 161 / 81 78 99 % 29 05:21 PM 158 / 85 77 99 % 24 05:26 PM 168 / 74 73 100 % 35 05:08 PM / % 5 = Fully awake and oriented or at pre-proc level Procedural Medications Time Medication Dose Units Method Given By 04:59 PM Oxygen 2 L/min nasal cannula Camelia Beal RN 05:05 PM Versed 1 mg Intravenous Camelia Beal RN 05:05 PM Fentanyl 25 mcg Intravenous Camelia Beal RN 05:12 PM Lidocaine 2% 10 ml Subcutaneous Vitaliy Guillory MD, [facility] ASA Classification: CLASS II- Mild systemic disease (i.e. well-controlled diabetes, hypertension, asthma, cigarette smoking) Jairon Score Preprocedure Postprocedure Activity 2- Moves 4 extremities sustained head lift Activity 2- Moves 4 extremities sustained head lift Circulation 2- SBP +/= 20 points of pre-anesthetic level Circulation 2- SBP +/= 20 points of pre-anesthetic level Consciousness 2- Awake and alert oriented x 3 Consciousness 2- Awake and alert oriented x 3 O2 Saturation 2- Able to maintain O2 satruation of 92% on room air O2 Saturation 2- Able to maintain O2 satruation of 92% on room air Respiratory 2- Able to deep breathe and cough well Respiratory 2- Able to deep breathe and cough well Total Score 10 Total Score 10 Contrast Agent: Isovue Diagnostic Contrast: 53 ml Total Contrast: 53 ml Fluoro Dose: 94 mGy Procedure Log Time Note Enter By 04:57 PM Pt arrived to environmental laboratory technician 1 at 16:57 [email or web address] 04:57 PM Renan Haley RT (R) Position: Scrub Time in: 16:57 ejohnson 04:57 PM Mónica Yancey RT (R) Position: Monitor Time in: 16:57 ejohnson 04:58 PM Camelia Beal RN Position: Production Boring Machine Operator Time in: 16:57 ejohnson 04:59 PM Case Start 04:59 PM Patient charges- Angio tray pack, Navilyst 3mm J, Pulse Oximetry and ACIST tubing and transducer ejohnson 04:59 PM IV Supplies used: J loop Angio Cath. ejohnson 04:59 PM Case Delayed No, Inpatient ejohnson 04:59 PM Physician arrived 16:59 ejohnson 04:59 PM Meet and greet completed ejohnson 04:59 PM Sign in performed according to hospital policy. ejohnson 04:59 PM Procedure start 16:59 ejohnson 05:00 PM Time: 16:59 Oxygen on at 2 L/min per nasal cannula by Camelia Beal RN ejohnson 05:00 PM CathStat 05:05 PM ASA Class CLASS II- Mild systemic disease (i.e. well-controlled diabetes, hypertension, asthma, cigarette smoking) ejohnson 05:05 PM Time: 17:05 Versed 1 mg Intravenous Given by Camelia Beal RN ejohnson 05:06 PM Time: 17:05 Fentanyl 25 mcg Intravenous Given by Camelia Beal RN [email or web address] 05:08 PM Time: 17:08 Patient comfortable and pain free: Yes ejohnson 05:08 PM Time: 17:08LOC: 5 = Fully awake and oriented or at pre-proc level ejohnson 05:09 PM Clinical Presentation: Non-STEMI ejohnson 05:10 PM Vitals capture started with the following parameters, Patient=Adult, Interval=5 min, Initial Gvrsrbxl=299 mmHg, Deflation Rate=5 mmHg, Cuff placed on Left Arm 05:11 PM HR=81 bpm, VEQG=753/99 mmhg, EfR3=967.0 %, Resp=19 B/min, Comment=nsr 05:11 PM Time out performed according to hospital policy ejohnson 05:12 PM Time: 17:12 10 ml Lidocaine 2% to right groin Subcutaneous Given by Vitaliy Guillory MD, [facility] ejohnson 05:13 PM Access obtained by percutaneous puncture. 5Fr 10cm Terumo Daggett sheath placed in right Femoral artery. [id number] ejohnson 05:13 PM 5Fr FL 4 catheter inserted over the wire [facility] ejohnson 05:13 PM 0.035 145cm Navilyst 3mmJ wire [id number] ejohnson 05:13 PM LCA angiography performed in multiple views. ejohnson 05:14 PM Recorded Pressure: Ao, HR=78, Condition=Condition 1 (Aorta) Ao 179/76/121 05:14 PM Recorded Pressure: Ao, HR=78, Condition=Condition 1 (Aorta) Ao 158/86/120 05:15 PM Catheter removed dspell 05:15 PM 5Fr FR 4 catheter inserted over the wire [facility] dspell 05:16 PM HR=78 bpm, XUAX=351/81 mmhg, SpO2=99.0 %, Resp=29 B/min, Comment=nsr 05:17 PM RCA angiography performed in multiple views. [email or web address] 05:17 PM Catheter removed dspell 05:17 PM Coronary Dominance: right [email or web address] 05:17 PM Lesion found in Mid RCA. Pre Stenosis: 20 Pre EL Flow: 3: Complete and Brisk Flow/Perfusion dspellman 05:17 PM 5Fr Pigtail catheter inserted over the wire [facility] dspell 05:18 PM Catheter selectively placed in left ventricle [email or web address] 05:18 PM Bolus angiogram of left Ventricle complete: 10 ml/sec for a total of 20 mls dspellman 05:18 PM Lesion found in Proximal Circumflex. Pre Stenosis: 15 Pre EL Flow: 3: Complete and Brisk Flow/Perfusion dspellman 05:18 PM Recorded Pressure: LV, HR=82, Condition=Condition 1 (Left Ventricle) LV 163/11/19 05:20 PM Recorded Pressure: LV, Ao, HR=78, Condition=Condition 1 (Left Ventricle) LV 169/0/21, (Aorta) Ao 166/70/111 05:20 PM Catheter removed dspell 05:20 PM Wire removed dspell 05:20 PM Bolus angiogram of right Femoral complete: 4 ml/sec for a total of 7 mls dspell 05:21 PM Procedure completed at 17:21 [email or web address]:21 PM HR=77 bpm, TFCW=976/85 mmhg, SpO2=99.0 %, Resp=24 B/min, Comment=nsr 05:21 PM Sign out completed: Radiation Dose 94.16 mGy Fluoro Time: 1.9 Isovue 370 - 200ml contrast 53 ml given by Vitaliy Guillory MD, [facility]. Complications: NoneCardiac Rehab Consult needed: NoConfirmed administered medications: Yes : PM Isovue 370 - 200ml,1 Bottle(s) used. : PM Time: 17:08LOC: 5 = Fully awake and oriented or at pre-proc level dspell:23 PM Time: 17:08 Patient comfortable and pain free: Yes 05:24 PM Arterial sheath pulled, Mynx closure device used and was Successful [id number] S/N. dspell 05:24 PM Estimated Blood Loss: minimal dspell 05:24 PM Post ECG NSR dspell 05:24 PM Post Blood Pressure 158/85 dspell 05:26 PM HR=73 bpm, EQSK=727/74 mmhg, XnI3=996.0 %, Resp=35 B/min 05:29 PM Information taught Cardiac Cath and Mynx 05:31 PM Education needs Procedure, Plan of Care, and Responsibilities of Patient in Care 05:31 PM Learning barriers :None 05:31 PM Education Methods Verbal 05:31 PM Education evaluation Able to repeat information 05:31 PM Site status Hematoma - Rt Groin as reported by Camelia Beal RN at 17:31 Manual pressure held x 10 minutes 05:32 PM Opsite applied 05:32 PM Report given to Jayne CURRY Pt taken to 3B Room #11. 17:32 05:33 PM Patient out of room: 17:33 05:33 PM Family placed in consult room. 05:33 PM Complications: None 05:33 PM Fluoro Time: 1.9 05:33 PM Isovue 370 - 200ml contrast 53 ml given by Vitaliy Guillory MD, FACC. 05:33 PM Radiation Dose 94.16 mGy [facility] Complications Complication None None Hemodynamics Pressures Site Systolic/A Wave Diastolic/V Wave Mean AO 179 76 121 AO 158 86 120 LV 163 11 19 LV 169 0 21 AO 166 70 111 Post Procedure Information Blood Pressure: 158/85 mmHg Rhythm: NSR Post procedural instructions were given Closure Device Time Device Success/Fail 05/30/2017 5:33:00 PM MynxGrip Failed Site Checks Time Location Status Staff Sheath In? Note 05:31 PM Rt Groin Hematoma Camelia Beal RN Pulses Time Site Pre-Procedure Post-Procedure Note 05/30/2017 4:59:00 PM Bilateral DP & PT 1+ 05/30/2017 5:26:00 PM Bilateral DP & PT 1+ Updated by Blaire Cordon RN on 05/30/2017 5:34:56 PM RT Rohini electronically signed on 05/30/2017 5:38:19 PM with status of Final
[2017-05-30] MEDS: Niacin (24 HR) 500 MG TAB.ER.24H PO SCH (21:05)
[2017-05-31] MEDS: *HR* Heparin 5,000 UNIT/ML VIAL SQ SCH (06:22)
[2017-05-31] MEDS: Levothyroxine 25 MCG TABLET PO SCH (06:23)
[2017-05-31 07:44] VITALS: BP 128/71
[2017-05-31] MEDS ORDERED: Heparin 1,000 UNIT, 0.9 % Sodium Chloride 500 ML INARTERIAL ONE (08:00)
--- NOTE | 2017-05-31 09:08 | Cardiology Progress Note ---
Date of Encounter: 05/31/17 Time of Encounter: 08:30 Assessment and Plan (1) Elevated troponin Current Visit: Yes Status: Acute Per Cardiology: Flat, adynamic trops with peak 0.29 in setting of hyponatremia, reports SBP 160's initially, seizure like activity with LOC, and concerns for possible afib per medical records-- again previous medical records reviewed with no A. fib appreciated and no A. fib appreciated during this hospital stay. Echo with LVEF 60%, Indeterminate diastolic function, Mild MR & TR. NSWMA. CP free. Mild abnormal ST. Per discussion with Dr. Guillory, mild nonobstructive CAD. On ARB and Statin. Will add asa. Cardiology will s/o, re-consult PRN, f/u with PCP. Education provided regarding post cath care. All questions answered. (2) Alzheimer's dementia Current Visit: Yes Status: Chronic Per Cardiology: Has baseline dementia. Brain MRI no acute findings. Currently A&Ox3. Qualifiers: Alzheimer's disease onset: unspecified onset Dementia behavioral disturbance: without behavioral disturbance Qualified Code(s): G30.9 - Alzheimer's disease, unspecified; F02.80 - Dementia in other diseases classified elsewhere without behavioral disturbance; F02.80 - Dementia in other diseases classified elsewhere without behavioral disturbance; F02.80 - Dementia in other diseases classified elsewhere without behavioral disturbance Discussion w patient/family: The assessment and plan as outlined above was discussed with the patient and/or family members who expressed understanding and agreement. All questions were answered. Thank you for involving us in the care of your patient. Please call with any questions. Subjective Principal diagnosis: Elevated Trop Interval history: Patient seen with at bedside. She denies any chest pain, shortness of breath, palpitations. Denies any new concerns or complaints. Objective Vital Signs, Last 4 Hours Temp Pulse Resp BP Pulse Ox 05/31/17 07:41 98.2 F 71 14 128/71 96 General: Conversant, No Apparent Distress HEENT: Atraumatic, Normocephaly, Mucus Membranes Moist Neck: No JVD, Normal carotid pulses Cardiac: Reg Rate and Rhythm, Normal S1 and S2, No Murmur Lungs: Normal Breath Sounds, No Wheeze, Rales, Rhonchi Neuro: Alert and responsive, No focal deficits noted Abdomen: Soft, Non-Tender Skin: No rashes noted on visualized skin, Other (Right groin site with moderate ecchymosis, no hematoma, no bleeding, right DP and PT pulses 2+ palpable) Musculoskeletal: No Chest Wall Tenderness Extremities: No Clubbing, No Cyanosis, No Edema, Normal Pulses Results 05/30/17 04:05 05/30/17 04:05 - Imaging and Cardiology Cardiac cath: report reviewed Consult Discharge Plan - Plan Additional Instructions: Please follow up with her primary care provider for continued evaluation and repeat labs. Please try to see her within the next week. Resume her normal home medications, recommend holding Namenda at this time until patient is evaluated by primary care. Resume normal activities as tolerated. Resume normal diet as tolerated. Return to the emergency department as needed for any other problems or concerns , or should symptoms return or worsen. Referrals: Lyla Bates, BILL [Primary Care Provider] -
[2017-05-31] MEDS: Aspirin 81 MG TAB.CHEW PO SCH (09:15)
--- NOTE | 2017-05-31 09:20 | Discharge Summary ---
Date of Encounter: 05/31/17 Time of Encounter: 09:16 - Discharge Diagnosis (1) Encephalopathy acute Priority: Primary Status: Resolved Comments: has known baseline dementia. With episode of slurred speech followed by brief unresponsive episode on day of presentation. Started Namenda 2 days prior to episode. Bilateral carotids with nonstenotic plaque. TTE EF 60%, and dystonia diastolic dysfunction, mild MR and mild TR. PFO present on echo. Brain MRI with chronic small vessel ischemic changes, otherwise nonacute. She was found to be hyponatremic on arrival. Acute change in mentation possibly secondary to hyponatremia and/or Namenda. Seizure remains on the differential; discussed neurology consultation and EEG with on 05/31/17 and he preferred to follow up outpatient with Neurology. Stop home tramadol in the meantime until evaluated by neurology. Mentation returned to baseline with correction of hyponatremia and stopping Namenda. Will need to follow-up with PCP and neurology outpatient. (2) Elevated troponin Priority: Primary Status: Acute Comments: troponin peaked at 0.29. Denies chest pain. EKG without acute ST changes. TTE with 60%, indeterminate diastolic function, mild MR & TR, NSWMA. Nuclear stress test with small, mild intensity perfusion defect. 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 No intervention required. Cont home ARB and Statin. Add ASA. Follow-up with Cardiology outpatient (3) Hypertension Priority: Secondary Status: Chronic Comments: per hx. BP has been borderline/soft. Home HCTZ stopped with hyponatremia. Hold niacin stopped due to hypotension side effect. Continue home ARB at lower dose. Recommend follow-up with PCP within one week for BP recheck. Qualifiers: Hypertension type: essential hypertension Qualified Code(s): I10 - Essential (primary) hypertension (4) Hyponatremia Priority: Primary Status: Resolved Comments: Na 122 on arrival. Home HCTZ stopped. Na improved with IV fluids and stopping home HCTZ. Evidently trivia may have contributed to unresponsive episode. Recommend repeat CMP with PCP within one week. Na132 at discharge. (5) GERD (gastroesophageal reflux disease) Priority: Secondary Status: Chronic Comments: per hx. Sx's stable with home PPI. Qualifiers: Esophagitis presence: without esophagitis Qualified Code(s): K21.9 - Gastro -esophageal reflux disease without esophagitis - Discharge Medications Prescriptions: Aspirin 81 mg PO DAILY #30 tab.chew Losartan [Cozaar] 50 mg PO DAILY #60 tablet Home Medications: Cyanocobalamin (B-12) [Vitamin B12] 1,000 mcg IM QMONTH 05/27/17 [History] DiphenhydraMINE [Benadryl] 25 mg PO HS 05/27/17 [History] Donepezil [Aricept] 10 mg PO HS 05/27/17 [History] Levothyroxine [Synthroid] 25 mcg PO DAILY 05/27/17 [History] Omeprazole [PriLOSEC] 20 mg PO DAILY 05/27/17 [History] Simvastatin [Zocor] 20 mg PO HS 05/27/17 [History] Aspirin 81 mg PO DAILY #30 tab.chew 05/31/17 [Rx] Losartan [Cozaar] 50 mg PO DAILY #60 tablet 05/31/17 [Rx] Allergies/Adverse Reactions: 3 Allergy/AdvReac Type Severity Reaction Status Date / Time Sulfa (Sulfonamide Allergy Rash Verified 05/26/17 23:12 Antibiotics) Procedures/tests Complete & Pending: Procedures Performed prior 72 hours Category Date Time Status CL Cardiac Catheterization [CL] Routine C[facility] Cleaner 05/30/17 14:23 Ordered NM michelle perf SPECT multi [NM] Routine Exams 05/30/17 08:44 Taken SP pharm nuclear stress Routine Y 05/30/17 08:43 Completed Date of admission: 05/27/17 00:29 Primary care physician: Lyla Bates CNP Consults: 05/27/17 00:35 Consult to Occupational Therapy [CONS] Routine Comment: Evaluate, develop and implement POC Reason for Consult: Evaluate, develop and implement POC Consult to Physical Therapy [CONS] Routine Comment: Evaluate, develop and implement POC Reason for Consult: Disposition planning. Therapy - weakness in bed. 05/27/17 13:56 Consult to Cardiology [CONS] Routine Comment: Consulting Provider: Cardiology Lilia Reason for Consult: Elevated troponin, unsure if chest pain pt has Alzheimer' s. Time Notified: 13:57 Call Completed: Yes Discharging clinician: Melissa Garces Anticipated date of discharge: 05/31/17 - Patient Status Disposition: Home, Self-Care Condition: Good Functional capacity at discharge: uses cane/walker Overall status at discharge: patient is back to baseline - Discharge Instructions Instructions: Hypotension (DC), Syncope (DC), Aspirin (By mouth), Coronary Artery Disease (DC), Hyponatremia (DC) Follow Up With: Lyla Bates CNP [Primary Care Provider] - Additional Instructions: Please follow up with her primary care provider for continued evaluation and repeat labs. Please try to see her within the next week. Resume her normal home medications, recommend holding Namenda at this time until patient is evaluated by primary care. Resume normal activities as tolerated. Resume normal diet as tolerated. Return to the emergency department as needed for any other problems or concerns , or should symptoms return or worsen. RISK FACTORS: STOP SMOKING: If you smoke, STOP. Smoking or tobacco use significantly increases your risk of heart disease because nicotine causes the arteries to narrow or constrict. It also causes fats to stick to the artery. Your chances of having a heart attack are greatly increased if you continue to smoke. For more information, call the education line for smoking cessation 1-221-EEAJWLB EAT A LOW FAT/CHOLESTEROL/SODIUM DIET: This diet may help reduce your chances of having a heart attack. LIFTING: Avoid lifting anything more than 10 pounds for 5-7 days Prior to straining, laughing, sneezing and/or coughing, apply manual pressure directly over insertion site. ACTIVITY: You may walk or climb stairs as tolerated You can resume sexual activity as tolerated In general, you are encouraged to engage in a minimum of 30 minutes or more of moderate intensity physical activity, such as brisk walking, daily or at least 3 -4 times weekly BATHING Do not submerge the site into water (bath tub, hot tub, swimming pool) for 1 week. This can be a source for infection into the blood stream. You may shower after 24 hours SITE CARE: After 24 hours, you may remove the dressing and leave the site open to air. Keep the site clean and dry. Clean gently and pat dry. You can expect bruising and tenderness that gradually resolve within a week or two. Return to work as instructed per your physician Resume driving as instructed per physician Keep all scheduled follow up appointments Resume medications as instructed IMPORTANT: If prescribed a Platelet Aggregation Inhibitor such as, Plavix, Brilinta or Effient: Duration of therapy is minimum one year These medications are often used in combination with Aspirin in prevention of future heart attacks Never discontinue unless consult with your [employer] STROKE (CVA) Risk factors for a stroke are: Age, cigarette smoking, diabetes, excessive alcohol consumption, family history, high blood pressure, overweight, physical inactivity, prior stroke, heart attack, diagnosis of carotid artery stenosis or other artery disease. Warning signs: Sudden numbness or weakness of the face, arm or leg; especially on one side of the body, sudden confusion, trouble speaking or understanding, sudden trouble seeing in one or both eyes, sudden trouble walking, dizziness, loss of balance or coordination, sudden severe headache with no cause. Call 911 or go to the Emergency Room. CONGESTIVE HEART FAILURE: If you have been diagnosed with Congestive Heart Failure (CHF) and your symptoms return, make an appointment with your physician Weigh yourself daily. Notify your physician if you have a weight gain of two or more pounds in one day or five or more pounds in one week. If you experience any difficulty breathing, please call 911 BLEEDING: Although the risk of bleeding is minimal, it can happen. If you have any bleeding from the site, apply firm pressure above the puncture site for 10-15 minutes. If the bleeding does not stop, continue manual pressure and call 911 Contact your physician if: You develop a fever greater than 101 degrees Fahrenheit Your site becomes reddened or has any drainage You have an increase in pain or burning at the site or if a large knot forms at the site. If you experience chest pain, shortness of breath, dizziness, or extreme tiredness, stop the activity and rest. Please notify your physicians office if you experience any of these symptoms and they are not relieved by rest please call 911! - Diet and Activity Activity: increase activity as tolerated Diet: low fat, low cholesterol Interval History: Seen and examined at bedside. Patient is alert to self, pleasantly confused. She has no complaints, uneventful night. Continues to chest pain shortness of breath. Has been at bedside and further collateral obtained. reports on day of presentation patient had an episode of slurred speech followed by a brief episode of unresponsiveness where she slumped over and lower extremity body twitching/shaking. Discussed the possibility of seizure activity with him and pursuing further workup inpatient with an EEG. He does not want to stay and patient for this but he is agreeable to follow up outpatient. Hospital course: See assessment and plan for hospital course. - Time Spent with Patient Total time spent providing and/or coordinating discharge services: Greater than 30 minutes (46 minutes spent on discharge) - Constitutional Vitals: Temp Pulse Resp BP Pulse Ox 98.2 F 71 14 128/71 96 05/31/17 07:41 05/31/17 07:41 05/31/17 07:41 05/31/17 07:41 05/31/17 07:41 General appearance: Present: cooperative, A&O X 1, pleasant, no acute distress, answers questions appropriately - Head Head exam: Present: atraumatic, normocephalic - Eye Eye exam: Present: PERRL, conjuntiva pink, sclera anicteric Pupils: Present: PERRL - Neck Neck exam general surgery: Present: supple, trachea midline. Absent: lymphadenopathy - Respiratory Respiratory exam: Present: CTAB. Absent: accessory muscle use, rales, rhonchi, wheezes - Cardiovascular Cardiovascular exam: Present: RRR, +S1, +S2. Absent: diastolic murmur, gallop, rubs, systolic murmur - GI/Abdominal GI/Abdominal exam: Present: normal bowel sounds, soft, no peritoneal signs. Absent: distended, tenderness - Extremities Exam Extremities exam: Present: warm, radial pulses palpable and symmetrical. Absent : calf tenderness, cyanotic, pedal edema - Neurological Exam Neurological exam: Present: CN II-XII intact, oriented X3, no focal deficits. Absent: pronater drift, facial droop, speech deficit - Skin Skin exam: Present: dry, intact
[2017-06-01 10:20] LABS: Urine Collection Duration RANDOM hr; Urine Collection Volume RANDOM mL
== END 2017-05-31 10:40 | disposition home or self-care (01) | DRG 280 ==
LOC: 3BNU
PROVIDERS: ADMIT Student in an Organized Health Care Education/Training Program; ATTEND Registered Nurse